=== PATIENT | male | born 1940 | race Caucasian/White ===

== ENCOUNTER → 2017-05-21 | Outpatient (CLI) | payer OTHER | LOC: FIMAGING 11:39 | PROVIDERS: ATTEND Family Medicine Sports Medicine | DX: S99.922A Unspecified injury of left foot, initial encounter (principal) ==

== ENCOUNTER 2018-07-22 16:57 | Inpatient (IN) | payer OTHER ==
--- NOTE | 2018-07-22 17:05 | EDPHY ---
H & P Time Seen by Provider: 07/22/18 17:05 HPI/ROS: HPI CHIEF COMPLAINT: Nausea vomiting abdominal pain HISTORY OF PRESENT ILLNESS: 78-year-old male, recurrent small-bowel obstructions, presents emergency room nausea vomiting and abdominal pain. Patient states he started developing abdominal pain nausea vomiting at 5:00 a.m. This morning. It is now 5:00 p.m. At night. He complains of worsening abdominal pain nausea vomiting. He denies chest pain or shortness of breath, denies fever. He states this feels exactly like his previous SBO. He denies any pass flatus. Past Medical History: SBO multiple Past Surgical History: SBO surgery. Social History: Denies drugs alcohol tobacco. Family History: Noncontributory ROS REVIEW OF SYSTEMS: 10 Systems were reviewed and negative with the exception of the elements mentioned in the history of present illness. Exam Constitutional elderly, nontoxic triage nursing summary reviewed, vital signs reviewed, awake/alert. Eyes normal conjunctivae and sclera, EOMI, PERRLA. HENT normal inspection, atraumatic, moist mucus membranes, no epistaxis, neck supple/ no meningismus, no raccoon eyes. Respiratory clear to auscultation bilaterally, normal breath sounds, no respiratory distress, no wheezing. Cardiovascular rate normal, regular rhythm, no murmur, no edema, distal pulses normal. Gastrointestinal mild tender palpation worse on the left side, hypoactive bowel sounds,, no rebound, no guarding, normal bowel sounds, no distension, no pulsatile mass. Genitourinary no CVA tenderness. Musculoskeletal no midline vertebral tenderness, full range of motion, no calf swelling, no tenderness of extremities, no meningismus, good pulses, neurovascularly intact. Skin pink, warm, & dry, no rash, skin atraumatic. Neurologic awake, alert and oriented x 3, AAOx3, moves all 4 extremities equally, motor intact, sensory intact, CN II-XII intact, normal cerebellar, normal vision, normal speech. Psychiatric normal mood/affect. Heme/Lymph/Immune no lymphadenopathy. Differential diagnosis includes but is not limited to and in no particular order : Bowel obstruction, appendicitis, gallbladder disease, diverticulitis, colitis , enteritis, perforated viscus, gastritis, GERD, esophagitis, urinary tract infection, pyelonephritis, kidney stones Medical Decision Making: Plan for this patient IV establishment IV fluid bolus , IV Zofran for nausea, IV Dilaudid for pain control, CT scan abdomen pelvis with IV contrast to help delineate abdominal pain vomiting. Basic blood work, gentle IV fluids, re-evaluate. Re-evaluation: CT scan abdomen pelvis with IV contrast called to me by . Shows SBO. 1838 will consult General surgery. I have consult General surgery 1845 Dr. Mooney. Hospitalist admit. NG tube ordered. Of note patient states that he is not diabetic states he is prediabetic however is not anything to eat today. Blood sugar elevated. NG tube ordered. Hospitalist service consult Dr. Ross for admission. Surgery consult Dr. Mooney. Patient updated agrees for admission. Agrees for NG tube. Source: Patient - Personal History Tetanus Vaccine Date: - Medical/Surgical History Hx Asthma: No Hx Chronic Respiratory Disease: No Hx Diabetes: No Hx Cardiac Disease: No Hx Renal Disease: No Hx Cirrhosis: No Hx Alcoholism: No Hx HIV/AIDS: No Hx Splenectomy or Spleen Trauma: No Other PMH: knee replacement, depression - Social History Smoking Status: Never smoked Constitutional: Initial Vital Signs Temperature (C) 36.6 C 07/22/18 17:05 Heart Rate 60 07/22/18 17:05 Respiratory Rate 16 07/22/18 17:05 Blood Pressure 169/90 H 07/22/18 17:05 O2 Sat (%) 98 07/22/18 17:05 O2 (L/minute) 4 Allergies/Adverse Reactions: sulfamethoxazole [From Bactrim] Allergy (Severe, Verified 07/22/18 17:03) CAUSED SMALL INTESTINE TO KNOT UP trimethoprim [From Bactrim] Allergy (Severe, Verified 07/22/18 17:03) CAUSED SMALL INTESTINE TO KNOT UP Home Medications: Medication Instructions Recorded Aspirin [Aspirin 81mg] 162 mg PO DAILY 10/17/11 Lisinopril/Hydrochlorothiazide 1 ea PO DAILY 10/17/11 [Lisinopril-Hctz 20-25 mg Tab] Simvastatin [Zocor 40 mg (RX)] 40 mg PO DAILY 10/17/11 buPROPion SR [Wellbutrin] 150 mg PO DAILY 10/17/11 Aspirin [Aspirin 325 mg (OTC)] 325 mg PO Q1H 01/09/13 oxyCODONE CR 07/22/18 Medical Decision Making - Diagnostics Imaging Results: Imaging Impressions Abdomen X-Ray 07/22/18 17:08 Impression: 1. Nonspecific bowel gas pattern. Abdomen CT 07/22/18 18:14 Impression: 1. Moderate small bowel obstruction, transition point just behind and slightly to the left of the umbilicus. 2. Sigmoid diverticulosis, without evidence of diverticulitis. 3. Trace peritoneal free fluid. Results called to Dr. José Luis Wright at 6:40 p.m. - Data Points Laboratory Results: Laboratory Results 07/22/18 17:45 07/22/18 17:45 07/22/18 07/22/18 07/22/18 17:45 17:45 17:45 WBC 14.41 10^3/uL H 10^3/uL (3.80-9.50) RBC 5.49 10^6/uL 10^6/uL (4.40-6.38) Hgb 17.6 g/dL H g/dL (13.7-17.5) Hct 49.7 % % (40.0-51.0) MCV 90.5 fL fL (81.5-99.8) MCH 32.1 pg pg (27.9-34.1) MCHC 35.4 g/dL g/dL (32.4-36.7) RDW 13.0 % % (11.5-15.2) Plt Count 199 10^3/uL 10^3/uL (150-400) MPV 10.8 fL fL (8.7-11.7) Neut % (Auto) 89.4 % H % (39.3-74.2) Lymph % (Auto) 5.4 % L % (15.0-45.0) [place] % (Auto) 4.2 % L % (4.5-13.0) Eos % (Auto) 0.1 % L % (0.6-7.6) Baso % (Auto) 0.3 % % (0.3-1.7) Nucleat RBC Rel Count 0.0 % % (0.0-0.2) Absolute Neuts (auto) 12.87 10^3/uL H 10^3/uL (1.70-6.50) Absolute Lymphs (auto) 0.78 10^3/uL L 10^3/uL (1.00-3.00) Absolute Monos (auto) 0.61 10^3/uL 10^3/uL (0.30-0.80) Absolute Eos (auto) 0.02 10^3/uL L 10^3/uL (0.03-0.40) Absolute Basos (auto) 0.04 10^3/uL 10^3/uL (0.02-0.10) Absolute Nucleated RBC 0.00 10^3/uL 10^3/uL (0-0.01) Immature Gran % 0.6 % % (0.0-1.1) Immature Gran # 0.09 10^3/uL 10^3/uL (0.00-0.10) PT 13.1 SEC SEC (12.0-15.0) INR 0.97 (0.83-1.16) APTT 22.4 SEC L SEC (23.0-38.0) VBG Lactic Acid Sodium 136 mEq/L mEq/L (135-145) Potassium 4.7 mEq/L mEq/L (3.5-5.2) Chloride 104 mEq/L mEq/L (97-110) Carbon Dioxide 20 mEq/l L mEq/l (22-31) Anion Gap 12 mEq/L mEq/L (6-14) BUN 25 mg/dL H mg/dL (7-23) Creatinine 1.3 mg/dL mg/dL (0.7-1.3) Estimated GFR 54 Glucose 204 mg/dL H mg/dL (70-100) Calcium 10.7 mg/dL H mg/dL (8.5-10.4) Phosphorus 2.7 mg/dL mg/dL (2.5-4.5) Total Bilirubin 1.3 mg/dL mg/dL (0.1-1.4) Conjugated Bilirubin 0.3 mg/dL mg/dL (0.0-0.5) Unconjugated Bilirubin 1.0 mg/dL mg/dL (0.0-1.1) AST 31 IU/L IU/L (17-59) ALT 43 IU/L IU/L (21-72) Alkaline Phosphatase 83 IU/L IU/L (38-126) Total Protein 8.3 g/dL H g/dL (6.3-8.2) Albumin 5.2 g/dL H g/dL (3.5-5.0) Lipase 154 IU/L IU/L (23-300) 07/22/18 17:45 WBC RBC Hgb Hct MCV MCH MCHC RDW Plt Count MPV Neut % (Auto) Lymph % (Auto) [place] % (Auto) Eos % (Auto) Baso % (Auto) Nucleat RBC Rel Count Absolute Neuts (auto) Absolute Lymphs (auto) Absolute Monos (auto) Absolute Eos (auto) Absolute Basos (auto) Absolute Nucleated RBC Immature Gran % Immature Gran # PT INR APTT VBG Lactic Acid 1.7 mmol/L mmol/L (0.7-2.1) Sodium Potassium Chloride Carbon Dioxide Anion Gap BUN Creatinine Estimated GFR Glucose Calcium Phosphorus Total Bilirubin Conjugated Bilirubin Unconjugated Bilirubin AST ALT Alkaline Phosphatase Total Protein Albumin Lipase Medications Given: Discontinued Medications Hydromorphone HCl (Dilaudid) 0.5 mg IVP EDNOW ONE Stop: 07/22/18 17:11 Last Admin: 07/22/18 17:36 Dose: 0.5 mg Sodium Chloride (Ns) 1,000 mls @ 0 mls/hr IV EDNOW ONE; Wide Open PRN Reason: Protocol Stop: 07/22/18 17:09 Last Admin: 07/22/18 17:33 Dose: 1,000 mls Sodium Chloride (Ns) 1,000 mls @ 0 mls/hr IV ONCE ONE PRN Reason: Wide Open Stop: 07/22/18 18:19 Last Admin: 07/22/18 18:56 Dose: 1,000 mls Ondansetron HCl (Zofran) 4 mg IVP EDNOW ONE Stop: 07/22/18 17:11 Last Admin: 07/22/18 17:37 Dose: 4 mg Departure - Departure Disposition: [facility] Inpatient Acute Clinical Impression: SBO (small bowel obstruction), Hyperglycemia Condition: Fair Referrals: Shailesh Fuller MD [Primary Care Provider] - As per Instructions
[2018-07-22] MEDS ORDERED: NS 1,000 ML IV ONE ×2 (17:08→18:18)
[2018-07-22] MEDS ORDERED: ONDANSETRON 4 MG/2 ML VIAL IVP ONE (17:10)
[2018-07-22] MEDS ORDERED: HYDROmorphONE/DILAUDID 2 MG/ML INJ IVP ONE (17:10)
[2018-07-22 17:54] LABS: PLATELET COUNT 199 10^3/uL (150-400)
[2018-07-22 18:03] LABS: INR 0.97 (0.83-1.16); PROTIME(PATIENT) 13.1 SEC (12.0-15.0)
[2018-07-22] MEDS ORDERED: IOPAMIDOL (ISOVUE-300) 100 ML BTL ONE (18:17)
[2018-07-22] MEDS ORDERED: ONDANSETRON DISINTEGRATING 4 MG TAB PO PRN (19:58)
[2018-07-22] MEDS ORDERED: LORazepam 2 MG/ML INJ IVP PRN (19:58)
[2018-07-22] MEDS ORDERED: ACETAMINOPHEN 325 MG TAB PO PRN (19:58)
[2018-07-22] MEDS ORDERED: PROMETHAZINE HCL 25 MG/ML INJ IVP ONE (19:59)
[2018-07-22] MEDS ORDERED: D50W 25 GM/50 ML SYR IVP PRN (20:00)
[2018-07-22] MEDS: NS 1,000 ML IV SCH (21:03)
[2018-07-22] MEDS: ONDANSETRON 4 MG/2 ML VIAL IVP PRN (21:32)
--- NOTE | 2018-07-22 21:59 | PDGENHP ---
History and Physical - Chief Complaint abd pain/nausea - History of Present Illness 78 yo M with PMH of recurrent SBO presenting with complaints of nausea/vomiting and abdominal pain since this morning. He notes the pain is in his left upper quadrant and very similar to sxs he has had with sbo in the past. He has not been able to eat or drink, not been passing gas and no bms. He states he feels better since NGT placed and since getting pain meds in the ER. He notes that the first time he had these symptoms was in 1985, at that time a surgeon took him for an ex lap and YANDY although he had never had a prior abdominal surgery. He has had SBO approximately 10 times since then, last about 4 years ago. Each time other than the first was managed conservatively. Dr. Mooney was consulted by ER and will follow. History Information - Allergies/Home Medication List Allergies/Adverse Reactions: sulfamethoxazole [From Bactrim] Allergy (Severe, Verified 07/22/18 17:03) CAUSED SMALL INTESTINE TO KNOT UP trimethoprim [From Bactrim] Allergy (Severe, Verified 07/22/18 17:03) CAUSED SMALL INTESTINE TO KNOT UP Home Medications: Lisinopril/Hydrochlorothiazide [Lisinopril-Hctz 20-25 mg Tab] 1 ea PO DAILY 18/07 [Last Taken 07/22/18] Simvastatin [Zocor 40 mg (RX)] 40 mg PO DAILY 10/17/11 [Last Taken 07/22/18] buPROPion SR [Wellbutrin] 150 mg PO DAILY 10/17/11 [Last Taken 07/22/18] Aspirin [Aspirin 325 mg (OTC)] 325 mg PO DAILY 01/09/13 [Last Taken 07/22/18] metFORMIN HCL [Metformin HCl] 500 mg PO DAILY 07/22/18 [Last Taken 07/22/18] I have personally reviewed and updated: family history, medical history, social history, surgical history - Past Medical History diabetes type 2, hypertension, hyperlipidemia Additional medical history: gout. recurrent sbo. bladder cancer - Surgical History Reports: cancer surgery (TURBT x 3) Additional surgical history: TkA. back surgery. ex lap/YANDY - Family History Positive for: non-pertinent - Social History Smoking Status: Former smoker Alcohol Use: Occasionally Drug Use: None Additional social history: , 2 sons, 5 grandchildren Review of Systems Review of Systems: ROS: 10pt was reviewed & negative except for what was stated in HPI & below Physical Exam Physical Exam: Temp Pulse Resp BP Pulse Ox 36.3 C 86 17 177/87 H 96 07/22/18 20:34 07/22/18 20:34 07/22/18 20:34 07/22/18 20:34 07/22/18 20:34 O2 (L/minute) 2 Constitutional: appears nourished, uncomfortable Eyes: PERRL, anicteric sclera Ears, Nose, Mouth, Throat: moist mucous membranes, other (ngt in place) Cardiovascular: regular rate and rhythym, no murmur, rub, or gallop Respiratory: no respiratory distress, no rales or rhonchi Gastrointestinal: tenderness (luq), No normoactive bowel sounds, No guarding, No rebound Genitourinary: no bladder fullness Skin: warm, normal color Musculoskeletal: no muscle tenderness Neurologic: AAOx3 Psychiatric: interacting appropriately, not anxious, not encephalopathic Lab Data & Imaging Review 07/22/18 17:45 07/22/18 17:45 WBC 14.41 10^3/uL (3.80-9.50) H 07/22/18 17:45 RBC 5.49 10^6/uL (4.40-6.38) 07/22/18 17:45 Hgb 17.6 g/dL (13.7-17.5) H 07/22/18 17:45 Hct 49.7 % (40.0-51.0) 07/22/18 17:45 MCV 90.5 fL (81.5-99.8) 07/22/18 17:45 MCH 32.1 pg (27.9-34.1) 07/22/18 17:45 MCHC 35.4 g/dL (32.4-36.7) 07/22/18 17:45 RDW 13.0 % (11.5-15.2) 07/22/18 17:45 Plt Count 199 10^3/uL (150-400) 07/22/18 17:45 MPV 10.8 fL (8.7-11.7) 07/22/18 17:45 Neut % (Auto) 89.4 % (39.3-74.2) H 07/22/18 17:45 Lymph % (Auto) 5.4 % (15.0-45.0) L 07/22/18 17:45 [place] % (Auto) 4.2 % (4.5-13.0) L 07/22/18 17:45 Eos % (Auto) 0.1 % (0.6-7.6) L 07/22/18 17:45 Baso % (Auto) 0.3 % (0.3-1.7) 07/22/18 17:45 Nucleat RBC Rel Count 0.0 % (0.0-0.2) 07/22/18 17:45 Absolute Neuts (auto) 12.87 10^3/uL (1.70-6.50) H 07/22/18 17:45 Absolute Lymphs (auto) 0.78 10^3/uL (1.00-3.00) L 07/22/18 17:45 Absolute Monos (auto) 0.61 10^3/uL (0.30-0.80) 07/22/18 17:45 Absolute Eos (auto) 0.02 10^3/uL (0.03-0.40) L 07/22/18 17:45 Absolute Basos (auto) 0.04 10^3/uL (0.02-0.10) 07/22/18 17:45 Absolute Nucleated RBC 0.00 10^3/uL (0-0.01) 07/22/18 17:45 Immature Gran % 0.6 % (0.0-1.1) 07/22/18 17:45 Immature Gran # 0.09 10^3/uL (0.00-0.10) 07/22/18 17:45 PT 13.1 SEC (12.0-15.0) 07/22/18 17:45 INR 0.97 (0.83-1.16) 07/22/18 17:45 APTT 22.4 SEC (23.0-38.0) L 07/22/18 17:45 VBG Lactic Acid 1.7 mmol/L (0.7-2.1) 07/22/18 17:45 Sodium 136 mEq/L (135-145) 07/22/18 17:45 Potassium 4.7 mEq/L (3.5-5.2) 07/22/18 17:45 Chloride 104 mEq/L (97-110) 07/22/18 17:45 Carbon Dioxide 20 mEq/l (22-31) L 07/22/18 17:45 Anion Gap 12 mEq/L (6-14) 07/22/18 17:45 BUN 25 mg/dL (7-23) H 07/22/18 17:45 Creatinine 1.3 mg/dL (0.7-1.3) 07/22/18 17:45 Estimated GFR 54 07/22/18 17:45 Glucose 204 mg/dL (70-100) H 07/22/18 17:45 POC Glucose 140 mg/dL (70-100) H 07/22/18 21:00 Calcium 10.7 mg/dL (8.5-10.4) H 07/22/18 17:45 Phosphorus 2.7 mg/dL (2.5-4.5) 07/22/18 17:45 Total Bilirubin 1.3 mg/dL (0.1-1.4) 07/22/18 17:45 Conjugated Bilirubin 0.3 mg/dL (0.0-0.5) 07/22/18 17:45 Unconjugated Bilirubin 1.0 mg/dL (0.0-1.1) 07/22/18 17:45 AST 31 IU/L (17-59) 07/22/18 17:45 ALT 43 IU/L (21-72) 07/22/18 17:45 Alkaline Phosphatase 83 IU/L (38-126) 07/22/18 17:45 Total Protein 8.3 g/dL (6.3-8.2) H 07/22/18 17:45 Albumin 5.2 g/dL (3.5-5.0) H 07/22/18 17:45 Lipase 154 IU/L (23-300) 07/22/18 17:45 Visualized and Interpreted imaging results: Yes Interpretation: abd CT: moderate SBO, transition point left of umbilicus. abd xray: ngt in stomach Assessment & Plan Assessment: Hyperglycemia (Acute) SBO (small bowel obstruction) (Acute) 78 yo M with PMH of recurrent SBO admitted with n/v/abdominal pain found to have sbo # SBO: with recurrent issue of the same in the past following surgery for this in . He is currently comfortable with NGT in place and pain medications but is not passing gas. Surgery consulted, no plans for surgical intervention currently. Conservative mgmt with NPO, NGT, IVF, antiemetics and pain meds as needed # DM2: will hold metformin, SSI, patient notes he is 'borderline' diabetic # htn: holding oral meds for now given NPO/NGT in place, will give prn hydralazine # HLD: will resume home meds when taking po # observation status Patient new to my care. Old records reviewed and summarized as above. Care plan reviewed with ER doctor, further hx obtained from patients present at bedside.
[2018-07-22] MEDS ORDERED: hydrALAZINE 20 MG/ML VIAL IVP PRN (22:04)
[2018-07-22] MEDS: PROMETHAZINE HCL 25 MG/ML INJ IVP PRN (22:24)
--- NOTE | 2018-07-23 | PDCONSULT ---
[employer] Team Member Note: Mr. Ureña presented with abdominal pain, nausea and vomiting with findings of SBO on CT. He has had several attacks since an exploratory lap in 1985 in [place] for SBO due to adhesions (he had never had abdominal surgery prior). A nasogastric tube was placed in the ED and >1000ml was immediately aspirated. He feels a little better but is still having intermitant LUQ pain. Exam Temp Pulse Resp BP Pulse Ox 36.5 C 86 18 166/49 H 96 07/22/18 23:21 07/22/18 23:21 07/22/18 23:21 07/22/18 23:21 07/22/18 23:21 O2 (L/minute) 2 Constitutional: appears nourished, uncomfortable Cardiovascular: regular rate and rhythym Respiratory: clear to auscultation, reduced air movement Gastrointestinal: tenderness (diffuse mild upper abdominal tenderness without guarding, bowel sounds are present, midline incision without palpable hernias), distension Genitourinary: no bladder fullness Skin: warm, normal color Neurologic: AAOx3 Psychiatric: interacting appropriately, not anxious Past Medical History PMH: - Medical/Surgical History Hx Asthma: No Hx Chronic Respiratory Disease: No Hx Cardiac Disease: No Hx Diabetes: Yes Hx Renal Disease: No Hx Alcoholism: No Hx Cirrhosis: No Hx HIV/AIDS: No Hx Splenectomy or Spleen Trauma: No Other PMH: knee replacement, depression, HTN, hyperlipidemia, bladder CA, multiple SBO. TURBT x 3, TKA, back surgery, exp lap 1985 for SBO - Social History Smoking Status: Former smoker Alcohol Use: None Drug Use: None Assessment & Plan Assessment: Hyperglycemia/NIDDM-metformin held for now SBO-multiple prior attacks resolved without surgery (estimates 10 episodes since 1985) HTN Hyperlipidemia bladder cancer s/p TURBT x 3 Plan: NGT decompression, comfort measures will monitor for clinical improvement. If not improving will administer gastrograffin via his NGT and obtain a delayed KUB we discussed possible need for surgery, he is hoping to avoid this
[2018-07-23] MEDS: HYDROmorphONE/DILAUDID 1 MG/ML INJ IVP PRN ×5 (00:04→23:05)
[2018-07-23] MEDS: ONDANSETRON 4 MG/2 ML VIAL IVP PRN ×4 (04:37→23:05)
[2018-07-23] MEDS: NS 1,000 ML IV SCH ×3 (04:45→21:10)
[2018-07-23 05:09] LABS: PLATELET COUNT 181 10^3/uL (150-400)
[2018-07-23] MEDS: PROMETHAZINE HCL 25 MG/ML INJ IVP PRN (07:37)
--- NOTE | 2018-07-23 07:41 | SOAPPROG ---
SOAP Progress Note Assessment/Plan: Assessment:SBO without clinical resolution on overnight NGT decompression no clinical signs to suggest bowel ischemia Plan: continue NGT decompression, patient is quite optimistic that this will work as it has in the past increased activity as tolerated Del Parry MD, FACS 07/23/18 07:39 Subjective: still having cramping pains intermitantly, slept about 4 hours last night, no flatus Objective: Vital Signs Temp Pulse Resp BP Pulse Ox 36.6 C 90 20 161/91 H 93 07/23/18 07:20 07/23/18 07:20 07/23/18 07:20 07/23/18 07:20 07/23/18 07:20 Laboratory Results 07/23/18 04:45 07/23/18 04:45 07/22/18 07/23/18 07/24/18 05:59 05:59 05:59 Intake Total 2000 Output Total 1850 Balance 150 PT 13.1 SEC (12.0-15.0) 07/22/18 17:45 INR 0.97 (0.83-1.16) 07/22/18 17:45 - Pending Discharge Pending Discharge Within 24 Hours: No Pending Discharge Within 48 Hours: No Physical Exam - Physical Exam General Appearance: mild distress EENT: other (NGT right nares) Cardiac/Chest: regular rate, rhythm Abdomen: soft, distended, other (diffuse mild tenderness without guarding, hypoactive bowel sounds present) Skin: warm/dry Neuro/Psych: alert, normal mood/affect, oriented x 3 ICD10 Worksheet Patient Problems: Problems Problem Status Onset Hyperglycemia Acute SBO (small bowel obstruction) Acute
[2018-07-23] MEDS: INSULIN LISPRO 100 UNIT/ML SC SCH ×3 (10:08→17:30)
--- NOTE | 2018-07-23 13:18 | HOSPPROG ---
Hospitalist Progress Note Assessment/Plan: 78 yo M w recurrent SBO SBO: no peritoneal signs continue NPOI, IVF, NGT and antiemetics these typically resolve without surgery dm: lispro ss htn: follow proph: all lmwh dispo: change to inpt Subjective: abd imaging (CT and XRay) reviewed/interp by me Objective: Vital Signs Temp Pulse Resp BP Pulse Ox 37.0 C 76 20 151/74 H 98 07/23/18 11:48 07/23/18 11:48 07/23/18 11:48 07/23/18 11:48 07/23/18 11:48 Laboratory Results 07/23/18 04:45 07/23/18 04:45 07/22/18 07/23/18 07/24/18 05:59 05:59 05:59 Intake Total 2000 Output Total 1850 Balance 150 PT 13.1 SEC (12.0-15.0) 07/22/18 17:45 INR 0.97 (0.83-1.16) 07/22/18 17:45 - Physical Exam Constitutional: no apparent distress, appears nourished Eyes: PERRL, anicteric sclera Ears, Nose, Mouth, Throat: moist mucous membranes, hearing normal Cardiovascular: regular rate and rhythym, no murmur, rub, or gallop, No tachycardia, No bradycardia Respiratory: no respiratory distress, no rales or rhonchi Gastrointestinal: distension (bowel sounds hypoactive but present. no rebound or guarding), other Genitourinary: no bladder fullness, No fraser in urethra Skin: warm, normal color Musculoskeletal: full muscle strength ICD10 Worksheet Patient Problems: Problems Problem Status Onset Hyperglycemia Acute SBO (small bowel obstruction) Acute
--- NOTE | 2018-07-23 13:48 | PDMN ---
Medical Necessity Medical necessity: Change to inpt as of 07/23/18 @ 1318 as pt meets inpt criteria per MD order and MCG M-210, Intestinal Obstruction, 2 days. 78 y/o w/ hx of recurrent SBO presented w/nausea/vomiting/abd pain, abd CT shows moderate SBO and trace peritoneal free fluid, admitted w/acute SBO and acute hyperglycemia (hx DM2). NPO, NGT, IVF, antiemetics and pain meds as needed, anticipate>2MN for ongoing management of above.
--- NOTE | 2018-07-23 15:15 | ASMTCMCOM ---
CM Note CM Note Notes: 07/23/2018 Case Management Note Pt admitted for treatment of a small bowel obstruction. Met w/pt to discuss discharge needs. Pt lives with Meseret [phone]. 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 Pt is able to drive, however his is the main day haul or farm charter bus driver in the household. There are no difficulties with obtaining food. There are no therapy evals ordered at this time. Pt has not had home care in the past or a SNF rehab stay. PCP is Dr. Fuller with [facility]. Case Management d/c poc: Independent with follow up as directed. Case Management available if needs change. Date Signed: 07/23/2018 03:15 PM Electronically Signed By:Vangie Aguirre RN
[2018-07-24] MEDS: NS 1,000 ML IV SCH (05:06)
[2018-07-24 07:32] VITALS: BP 127/68
[2018-07-24] MEDS: INSULIN LISPRO 100 UNIT/ML SC SCH ×2 (07:47→11:00)
[2018-07-24] MEDS ORDERED: ENOXAPARIN 40 MG/0.4 ML SYR SC SCH (09:00)
--- NOTE | 2018-07-24 09:58 | HOSPPROG ---
Hospitalist Progress Note Assessment/Plan: 78 yo M w recurrent SBO SBO: improved today hungry dc IVF clear liquid diet AHRF: add IS dm: lispro ss htn: follow proph: all lmwh dispo: change to inpt Subjective: feels well. hungry. liquid stool. afebrile Objective: Vital Signs Temp Pulse Resp BP Pulse Ox 36.4 C 79 16 127/68 H 97 07/24/18 07:27 07/24/18 07:27 07/24/18 07:27 07/24/18 07:27 07/24/18 07:27 07/23/18 07/24/18 07/25/18 05:59 05:59 05:59 Intake Total 2700 Output Total 1800 Balance 900 PT 13.1 SEC (12.0-15.0) 07/22/18 17:45 INR 0.97 (0.83-1.16) 07/22/18 17:45 - Physical Exam Constitutional: no apparent distress, appears nourished Eyes: PERRL, anicteric sclera Ears, Nose, Mouth, Throat: moist mucous membranes, hearing normal Cardiovascular: regular rate and rhythym, no murmur, rub, or gallop, No tachycardia Respiratory: no respiratory distress, no rales or rhonchi Gastrointestinal: other (less distension, no rebound or guard BS present but hypoactive) Genitourinary: No fraser in urethra Skin: warm, normal color Musculoskeletal: full muscle strength, no muscle tenderness Neurologic: AAOx3, sensation intact bilaterally Psychiatric: interacting appropriately ICD10 Worksheet Patient Problems: Problems Problem Status Onset Hyperglycemia Acute SBO (small bowel obstruction) Acute
--- NOTE | 2018-07-24 19:11 | GDS ---
DISCHARGE DIAGNOSES: 1. Small bowel obstruction. 2. History of diabetes. 3. Hypertension. CONSULTS: General Surgery. Please see admission history and physical by Dr. Jeanette Ross. The patient presented with abdominal pain and distention consistent with previous episodes of small-b owel obstruction. He has had about what he describes as 10 of these, about 3 or 4 required hospitali zation. The index event occurred in 1985 and did come with surgery. The patient had a benign abdomi nal exam other than hypoactive bowel sounds and distention. He did not have peritoneal signs. Imaging was consistent with small-bowel obstruction. He received NG tube. IV fluids, antiemetics. On the 2nd hospital day, the patient was tolerating orals and anxious for discharge. NG tube was rem gabriella. Discharged home. No change in medications. /[id number]/MODL
== END 2018-07-24 14:01 | disposition home or self-care (01) | DRG 390 ==
LOC: F3E 20:20 → OBSVTOIN 07-23 13:18
PROVIDERS: ADMIT Internal Medicine; ATTEND Internal Medicine
DX: K56.609 Unspecified intestinal obstruction, unspecified as to partial versus complete obstruction (principal); E11.65 Type 2 diabetes mellitus with hyperglycemia; I10 Essential (primary) hypertension; E78.5 Hyperlipidemia, unspecified; Z87.891 Personal history of nicotine dependence; Z96.659 Presence of unspecified artificial knee joint; Z85.51 Personal history of malignant neoplasm of bladder
CPT/HCPCS: 96374; G0378; J1170; J1650; J2060; J2405; J2550; Q9967

== ENCOUNTER 2019-01-28 10:30 | Observation (INO) | payer OTHER | END 2019-01-29 14:24 | disposition home or self-care (01) | LOC: F3N 15:28 ==